=== PATIENT | male | born 1980 | race African-American/Black ===

== ENCOUNTER 2018-07-26 01:31 | Emergency (ER) | payer OTHER ==
[~2018-07-26] VITALS: Ht 188 cm; Wt 127.0 kg
[2018-07-26] MEDS ORDERED: PRINIVIL20 M1 PO (01:57)
[2018-07-26] MEDS ORDERED: RISPERDAL2 MG PO (01:58)
[2018-07-26 03:19] LABS: ABSOLUTE NEUTROPHILS 6.5 thou/uL (1.4-8.2); BASOPHILS 0.6 % (0.0-2.0); HEMATOCRIT 38.8 % (42.0-52.0); LYMPHOCYTES 13.5 % (24.0-44.0); MCHC 33.4 g/dL (28.0-37.0); MCV 89.6 fL (80.0-100.0); MONOCYTES 8.7 % (1.0-8.0); PLATELET COUNT 273 thou/uL (150-400); POLYS 77.2 % (36.0-66.0); RBC 4.33 mil/uL (4.50-6.00); RDW 13.6 % (10.5-14.5); WBC 8.4 thou/uL (4.0-11.0)
[2018-07-26 03:28] LABS: CALCIUM 8.4 mg/dL (8.5-10.1); CREATININE 1.1 mg/dL (0.7-1.3); POTASSIUM 3.1 mmol/L (3.5-5.1)
[2018-07-26 10:15] VITALS: BP 125/56
== END 2018-07-26 10:15 | disposition home or self-care (01) ==
LOC: ER 01:31
PROVIDERS: Student in an Organized Health Care Education/Training Program
DX: S01.81XA Laceration without foreign body of other part of head, initial encounter (principal); F20.9 Schizophrenia, unspecified; E87.6 Hypokalemia; I10 Essential (primary) hypertension; Z91.018 Allergy to other foods; W18.39XA Other fall on same level, initial encounter; Y92.89 Other specified places as the place of occurrence of the external cause; Y93.89 Activity, other specified; Y99.8 Other external cause status